=== PATIENT | male | born 1990 | race American Indian/Alaskan Native ===

== ENCOUNTER 2017-02-25 00:37 | Observation (INO) | payer OTHER ==
[2017-02-25 00:53] VITALS: BP 124/71; PULSE 75; RESP 17; TEMP 98.3; O2SAT 100
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
[2017-02-25] MEDS ORDERED: Emtricitabine-Tenofovir 200 mg-300 mg Tab PO STA (05:03)
== END 2017-02-25 05:45 | disposition home or self-care (01) ==
LOC: H.ER 00:37 → H.EROBSV 04:42
PROVIDERS: ADMIT Emergency Medicine; ATTEND Emergency Medicine
DX: Z04.8 Encounter for examination and observation for other specified reasons (principal); Z77.21 Contact with and (suspected) exposure to potentially hazardous body fluids